=== PATIENT | male | born 1965 | race Caucasian/White ===

== ENCOUNTER 2018-10-15 16:28 | Emergency (ER) | payer MEDICARE ==
[2018-10-15 17:32] LABS: ANION GAP 14.8 mmol/L (10-20); CHLORIDE,CL 102 mmol/L (98-107); SODIUM,NA 140 mmol/L (136-145)
--- NOTE | 2018-10-15 18:01 | EDM.PDOC ---
ED HPI GENERAL MEDICAL PROBLEM - General Chief Complaint: Gastrointestinal Problem Stated Complaint: HAD GULL BLADDER OUT 10/07 MAY HAVE INFECTION Time Seen by Provider: 10/15/18 16:53 Source of Information: Reports: Patient History Limitations: Reports: No Limitations - History of Present Illness INITIAL COMMENTS - FREE TEXT/NARRATIVE: Pt. presents to ER with complaints of coughing up blood and feels as though he has an abdominal infection. Pt. underwent cholecystectomy a week ago laproscopically and states that his abdomen feels odd. He states that he is concerned because because he has continued abdominal and chest pain since surgery. He states that he had a lot of discomfort but it has improved significantly. He is unable to state specifically what the symptoms are. He states that the pain is worse when he raises his arms, etc. Denies any fever or chills. No vomiting. Incisions are non-erythematous. Denies any discharge. He is also concerned that he had some bloody mucus that he coughed out after surgery. He states it happened once about a week ago. Onset Date: 10/08/18 Quality: Reports: Ache Middle Sternum Pain Score (Numeric/FACES): 5 - Related Data Allergies Allergy/AdvReac Type Severity Reaction Status Date / Time doxycycline Allergy Other Verified 10/15/18 16:53 Home Meds: Home Meds . [No Known Home Meds] 10/15/18 [History] Past Medical History - Past Health History Medical/Surgical History: Denies Medical/Surgical History Social & Family History - Tobacco Use Smoking Status *Q: Former Smoker Used Tobacco, but Quit: Yes Month/Year Tobacco Last Used: 33 years ago - Recreational Drug Use Recreational Drug Use: No ED ROS GENERAL - Review of Systems Review Of Systems: ROS reveals no pertinent complaints other than HPI. ED EXAM, GENERAL - Physical Exam Exam: See Below Exam Limited By: No Limitations General Appearance: Alert, WD/WN, No Apparent Distress Respiratory/Chest: No Respiratory Distress, Lungs Clear, Normal Breath Sounds, No Accessory Muscle Use, Chest Non-Tender Cardiovascular: Normal Peripheral Pulses, Regular Rate, Rhythm, No Edema, No JVD , No Murmur Peripheral Pulses: 4+: Radial (R) GI/Abdominal: Normal Bowel Sounds, Soft, Non-Tender, No Organomegaly, No Distention, No Abnormal Bruit, No Mass, Pelvis Stable (Male) Exam: Deferred Rectal (Males) Exam: Deferred Back Exam: Normal Inspection, Full Range of Motion Extremities: Normal Inspection, Normal Range of Motion, Non-Tender, No Pedal Edema, Normal Capillary Refill Neurological: Alert, Oriented, CN II-XII Intact, Normal Cognition, Normal Reflexes Psychiatric: Normal Affect, Normal Mood Skin Exam: Warm, Dry, Intact Course - Vital Signs Last Recorded V/S: Last Vital Signs Temp 37.0 C 10/15/18 16:53 Pulse 86 10/15/18 16:53 Resp 16 10/15/18 16:53 BP 128/71 10/15/18 16:53 Pulse Ox 95 10/15/18 16:53 - Orders/Labs/Meds Labs: Laboratory Tests 10/15/18 10/15/18 10/15/18 Range/Units 17:00 17:00 17:00 WBC 6.3 (4.0-10.0) x10^3/uL RBC 4.79 (4.5-6.0) x10^6/uL Hgb 14.5 (14.0-18.0) g/dL Hct 42.2 (40.0-52.0) % MCV 88.1 (78.0-93.0) fL MCH 30.3 (26.0-32.0) pg MCHC 34.4 (32.0-36.0) g/dL RDW Coeff of Mariam 12.0 (10.0-15.0) % Plt Count 251 (130-400) x10^3/uL Neut % (Auto) 65.7 (50.0-80.0) % Lymph % (Auto) 20.9 L (25.0-50.0) % [place] % (Auto) 8.9 (2.0-11.0) % Eos % (Auto) 3.7 (0.0-4.0) % Baso % (Auto) 0.8 (0.2-1.2) % PT 9.8 L (10.0-12.8) SEC INR 0.9 L (2.0-3.5) Sodium 140 (136-145) mmol/L Potassium 3.8 (3.5-5.1) mmol/L Chloride 102 (98-107) mmol/L Carbon Dioxide 27 (21-32) mmol/L Anion Gap 14.8 (10-20) mmol/L BUN 16 (7-18) mg/dL Creatinine 0.9 (0.70-1.30) mg/dL Est Cr Clr Drug Dosing 90.30 mL/min Estimated GFR (MDRD) > 60 Glucose 85 (74-106) mg/dL Calcium 8.8 (8.5-10.1) mg/dL Corrected Calcium 9.20 (8.5-10.1) mg/dL Total Bilirubin 0.4 (0.2-1.0) mg/dL AST 18 (15-37) U/L ALT 33 (16-63) U/L Alkaline Phosphatase 123 H (46-116) U/L C-Reactive Protein 0.6 (<=0.9) mg/dL Total Protein 7.8 (6.4-8.2) g/dL Albumin 3.5 (3.4-5.0) g/dL Globulin 4.3 Albumin/Globulin Ratio 0.81 Departure - Departure Time of Disposition: 17:30 Disposition: Home, Self-Care 01 Clinical Impression: Post-op pain - Discharge Information Forms: ED Department Discharge Additional Instructions: Follow-up in ER if you have any pain, fever, lightheadedness, or chest pain. - Assessment/Plan Plan: Follow-up in ER if you have any pain, fever, lightheadedness, or chest pain.
== END 2018-10-15 17:38 | disposition home or self-care (01) ==
LOC: VM.ED 16:28
DX: G89.18 Other acute postprocedural pain (principal); Z87.891 Personal history of nicotine dependence; Z88.1 Allergy status to other antibiotic agents
CPT/HCPCS: 36415; 80053; 85025; 85610; 86140; 99283; 99283-GF